=== PATIENT | male | born 1975 | race Two or more races ===

== ENCOUNTER 2017-09-02 13:39 | Emergency (ER) | payer SELFPAY ==
[2017-09-02] MEDS ORDERED: Sodium Chloride 0.9% 1,000 ML IV ONE (13:42)
[2017-09-02] MEDS ORDERED: Aspirin 81 MG Tab.Chew PO ONE (13:42)
--- NOTE | 2017-09-02 13:47 | EDM.PDOC ---
ED HPI GENERAL MEDICAL PROBLEM - General Stated Complaint: CHEST PAIN Time Seen by Provider: 09/02/17 13:45 Source of Information: Reports: Patient History Limitations: Reports: No Limitations - History of Present Illness INITIAL COMMENTS - FREE TEXT/NARRATIVE: HISTORY AND PHYSICAL: History of present illness: Patient is a 42-year-old male who presents to the emergency room today with complaints of midsternal chest pain that radiates to the left and into his back. He states he has had intermittent discomfort over the past 2-3 days. Today he was woken up at 7 AM in a "panic" with increased chest pain, shortness of breath, diaphoresis and nausea. He continued about his morning and presented to work. He states as he continues with working and exertion he has increased weakness and "just doesn't feel right". No previous history of any health conditions and does not take any [id number] or prescribed medications. Review of systems: As per history of present illness and below otherwise all systems reviewed and negative. Past medical history: As per history of present illness and as reviewed below otherwise noncontributory. Surgical history: As per history of present illness and as reviewed below otherwise noncontributory. Social history: No reported history of drug or alcohol abuse. Family history: As per history of present illness and as reviewed below otherwise noncontributory. Physical exam: General: Well-developed and well-nourished 42-year-old male. Alert and oriented. Nontoxic appearing and in no acute distress. HEENT: Atraumatic, normocephalic, pupils equal and reactive bilaterally, negative for conjunctival pallor or scleral icterus, mucous membranes moist, throat clear, neck supple, nontender, trachea midline. No drooling or trismus noted. No meningeal signs Lungs: Clear to auscultation, breath sounds equal bilaterally, chest nontender. Heart: S1S2, regular rate and rhythm without overt murmur Abdomen: Soft, nondistended, nontender. Negative for masses or hepatosplenomegaly. Negative for costovertebral tenderness. Pelvis: Stable nontender. Genitourinary: Deferred. Rectal: Deferred. Skin: Intact, warm, dry. No lesions or rashes noted. Extremities: Atraumatic, negative for cords or calf pain. Neurovascular unremarkable. Neuro: Awake, alert, oriented. Cranial nerves II through XII unremarkable. Cerebellum unremarkable. Motor and sensory unremarkable throughout. Exam nonfocal. Notes: Patient's blood pressure is elevated at 197/121. He states he has never had a history of hypertension. Denies any history of smoking tobacco in a routine marijuana user. Blood pressure has improved. Pain is still a 5/10. Reports that the pain is more "when I take in a deep breathe... I can feel it in my back". IV toradol ordered. After the Toradol his pain is at a 1 out of 10. We did discuss admission versus discharge to home. It sounds like his pain is more anxiety related. He states he usually uses marijuana to cope with his anxiety and has not had any in 3 days. He declines admission/transfer as we do not have any beds available at our facility (at capacity). Patient discharged with a prescription for diclofenac. Supportive care measures were reviewed and discussed. Signs and symptoms that would prompt him to return to the emergency room were also reviewed. He is agreeable to plan of care. Denies any further questions at this time Diagnostics: CBC, CMP, troponin, EKG, one view chest Therapeutics: Aspirin, nitroglycerin, saline Impression: Anxiety Non-specific chest pain Plan: 1. Please stop smoking. 2. Tylenol as needed for pain. Diclofenac has been prescribed as well. This medication is and anti-inflammatories to do not take it with any additional NSAID such as ibuprofen or Aleve. Please take with food. 3. Follow up with your [facility] care provider Monday. Return to the ED as needed and as discussed. Definitive disposition and diagnosis as appropriate pending reevaluation and review of above. Duration: Day(s): Location: Reports: Chest Chest Pain Score (Numeric/FACES): 7 - Related Data Allergies Allergy/AdvReac Type Severity Reaction Status Date / Time Penicillins Allergy Unknown Cannot Verified 09/02/17 13:43 Remember Home Meds: Home Meds . [No Known Home Meds] 09/02/17 [History] Past Medical History - Past Health History Medical/Surgical History: Denies Medical/Surgical History ED ROS GENERAL - Review of Systems Review Of Systems: ROS reveals no pertinent complaints other than HPI. ED EXAM, GENERAL - Physical Exam Exam: See Below (See dictation) Course - Vital Signs Last Recorded V/S: Last Vital Signs Temp 97.6 F 09/02/17 13:45 Pulse 98 09/02/17 13:45 Resp 20 09/02/17 13:45 BP 145/92 H 09/02/17 14:15 Pulse Ox 98 09/02/17 13:45 - Orders/Labs/Meds Orders: Active Orders 24 hr Category Date Time Status EKG Documentation Completion [RC] STAT Care 09/02/17 13:42 Active EKG Documentation Completion [RC] STAT Care 09/02/17 15:35 Active Chest 1V Frontal [CR] Stat Exams 09/02/17 13:42 Taken Labs: Laboratory Tests 09/02/17 09/02/17 Range/Units 13:50 13:50 WBC 8.66 (4.0-11.0) K/uL RBC 5.32 (4.50-5.90) M/uL Hgb 17.3 H (13.0-17.0) g/dL Hct 49.1 (38.0-50.0) % MCV 92.3 (80.0-98.0) fL MCH 32.5 H (27.0-32.0) pg MCHC 35.2 (31.0-37.0) g/dL RDW Std Deviation 44.0 (28.0-62.0) fl RDW Coeff of Rosalind 13 (11.0-15.0) % Plt Count 216 (150-400) K/uL MPV 9.60 (7.40-12.00) fL Neut % (Auto) 61.7 (48.0-80.0) % Lymph % (Auto) 28.5 (16.0-40.0) % Keith % (Auto) 7.9 (0.0-15.0) % Eos % (Auto) 1.4 (0.0-7.0) % Baso % (Auto) 0.5 (0.0-1.5) % Neut # (Auto) 5.4 (1.4-5.7) K/uL Lymph # (Auto) 2.5 H (0.6-2.4) K/uL Keith # (Auto) 0.7 (0.0-0.8) K/uL Eos # (Auto) 0.1 (0.0-0.7) K/uL Baso # (Auto) 0.0 (0.0-0.1) K/uL Nucleated RBC % 0.0 /100WBC Nucleated RBCs # 0 K/uL Sodium 139 (136-148) mmol/L Potassium 3.7 (3.5-5.1) mmol/L Chloride 102 (98-107) mmol/L Carbon Dioxide 25.8 (21.0-32.0) mmol/L BUN 13 (7.0-18.0) mg/dL Creatinine 1.1 (0.8-1.3) mg/dL Est Cr Clr Drug Dosing 84.64 mL/min Estimated GFR (MDRD) > 60.0 ml/min Glucose 116 H (74-106) mg/dL Calcium 9.0 (8.5-10.1) mg/dL Total Bilirubin 1.1 H (0.2-1.0) mg/dL AST 41 H (15-37) IU/L ALT 91 H (14-63) IU/L Alkaline Phosphatase 94 (46-116) U/L Troponin I < 0.050 (0.000-0.056) ng/mL Total Protein 7.9 (6.4-8.2) g/dL Albumin 4.4 (3.4-5.0) g/dL Globulin 3.5 (2.0-3.5) g/dL Albumin/Globulin Ratio 1.3 (1.3-2.8) Meds: Medications Discontinued Medications Generic Name Dose Route Start Last Admin Trade Name Freq PRN Reason Stop Dose Admin Aspirin 324 mg 09/02/17 13:42 09/02/17 14:07 Aspirin PO 09/02/17 13:43 324 mg ONETIME ONE Administration Sodium Chloride 1,000 mls @ 999 mls/hr 09/02/17 13:42 09/02/17 14:05 Normal Saline IV 09/02/17 14:42 999 mls/hr STAT ONE Administration Ketorolac Tromethamine 30 mg 09/02/17 14:33 09/02/17 15:21 Toradol IVPUSH 09/02/17 14:34 30 mg ONETIME ONE Administration Nitroglycerin 0.4 mg 09/02/17 13:42 09/02/17 14:15 Nitrostat SL 0.4 mg Q5M PRN Administration Chest Pain Departure - Departure Time of Disposition: 15:34 Disposition: Home, Self-Care 01 Clinical Impression: Anxiety, Nonspecific chest pain Instructions: Nonspecific Chest Pain, [id number] Referrals: PCP,Unknown [Primary Care Provider] - Additional Instructions: The following information is given to patients seen in the emergency department who are being discharged to home. This information is to outline your options for follow-up care. We provide all patients seen in our emergency department with a follow-up referral. The need for follow-up, as well as the timing and circumstances, are variable depending upon the specifics of your emergency department visit. If you don't have a primary care physician on staff, we will provide you with a referral. We always advise you to contact your personal physician following an emergency department visit to inform them of the circumstance of the visit and for follow-up with them and/or the need for any referrals to a consulting specialist. The emergency department will also refer you to a specialist when appropriate. This referral assures that you have the opportunity for follow-up care with a specialist. All of these measure are taken in an effort to provide you with optimal care, which includes your follow-up. Under all circumstances we always encourage you to contact your private physician who remains a resource for coordinating your care. When calling for follow-up care, please make the office aware that this follow-up is from your recent emergency room visit. If for any reason you are refused follow-up, please contact the [facility] Emergency Department at and asked to speak to the emergency department charge nurse. [facility] [address] [place] [id number] 1. Please stop smoking. 2. Tylenol as needed for pain. Diclofenac has been prescribed as well. This medication is and anti-inflammatories to do not take it with any additional NSAID such as ibuprofen or Aleve. Please take with food. 3. Follow up with your primary care provider Monday. Return to the ED as needed and as discussed. - My Orders Last 24 Hours: My Active Orders 09/02/17 13:42 EKG Documentation Completion [RC] STAT Chest 1V Frontal [CR] Stat 09/02/17 15:35 EKG Documentation Completion [RC] STAT - Assessment/Plan Last 24 Hours: My Active Orders 09/02/17 13:42 EKG Documentation Completion [RC] STAT Chest 1V Frontal [CR] Stat 09/02/17 15:35 EKG Documentation Completion [RC] STAT
[2017-09-02] MEDS: Nitroglycerin 0.4 MG Tab.SL SL PRN ×3 (14:05→14:15)
[2017-09-02 14:23] LABS: CHLORIDE,CL 102 mmol/L (98-107); SODIUM,NA 139 mmol/L (136-148)
[2017-09-02] MEDS ORDERED: Ketorolac 30 MG/ML SDV IVPUSH ONE (14:33)
--- NOTE | 2017-09-04 14:01 | CR ---
EXAM DATE: 09/02/17 PATIENT'S AGE: 42 Patient: LOIDA STRONG Facility: [place], [place] Site . Site : [id number] Study: XRay Chest [id number]/[id number] 2:34:59 PM Ordering Physician: Doctor Rosas Final Report: INDICATION: Chest pain. TECHNIQUE: Chest 2 views. COMPARISON: None FINDINGS: Cardiovascular and mediastinum: Allowing for portable AP technique, the cardiac silhouette is upper limits of normal in size. The mediastinal contour is normal. Pulmonary vasculature and sandi are normal. Lungs and pleural spaces: Lungs are clear. No pleural effusion. No pneumothorax. Bones and soft tissues: No acute findings. IMPRESSION: No acute pulmonary process. Dictated by Edwin Betts MD @ Sep 02 2017 3:11PM (Electronic Signature) Report Signed by Proxy. LIZA
== END 2017-09-02 15:55 | disposition home or self-care (01) ==
LOC: MW.ED 13:39
DX: R07.9 Chest pain, unspecified (principal); F41.9 Anxiety disorder, unspecified; Z88.0 Allergy status to penicillin
CPT/HCPCS: 36415; 71045; 80053; 84484; 85025; 93005; 96361; 96374; 99285; A9270; J1885; J7040; 99283

== ENCOUNTER 2021-01-20 19:21 | Emergency (ER) | payer MEDICAID ==
[2021-01-20] MEDS ORDERED: Sodium Chloride 0.9% 2.5 ML Syringe FLUSH PRN (19:24)
[2021-01-20] MEDS ORDERED: Sodium Chloride 0.9% 10 ML Syringe FLUSH PRN (19:24)
[2021-01-20] MEDS ORDERED: Lisinopril 10 MG Tab PO ONE ×2 (20:16→21:54)
[2021-01-20] MEDS ORDERED: Aspirin 81 MG Tab.Chew PO ONE (20:17)
--- NOTE | 2021-01-20 20:22 | PCM.EKG ---
#1 Interpretation EKG Date: 01/20/21 Time: 20:17 Rhythm: NSR Rate (Beats/Min): 74 ST-T: Normal
--- NOTE | 2021-01-20 21:01 | CR ---
INDICATION: Chest pain. TECHNIQUE: Chest 1 views. COMPARISON: September 02, 2017. FINDINGS: Cardiovascular and mediastinum: Heart size and vasculature are normal in caliber and appearance. Lungs and pleural spaces: Lungs are clear. No sign of infiltrate or mass. No sign of pleural effusion. No pneumothorax. Bones and soft tissues: No significant findings. IMPRESSION: No acute findings and no significant changes from the prior exam. Dictated by Lauro Little MD @ 01/20/2021 9:00:34 PM (Electronically Signed)
--- NOTE | 2021-01-20 21:01 | EDM.PDOC ---
ED HPI GENERAL MEDICAL PROBLEM - General Chief Complaint: Chest Pain Stated Complaint: CHEST PRESSURE, EYES BLURRY, EARS RINGING Time Seen by Provider: 01/20/21 19:29 Source of Information: Reports: Patient History Limitations: Reports: No Limitations - History of Present Illness INITIAL COMMENTS - FREE TEXT/NARRATIVE: HISTORY AND PHYSICAL: History of present illness: Patient is a 45-year-old male who presents to the emergency room with complaints of chest tightness, left-sided chest pain, intermittently blurred vision, tingling sensation across his forehead and ear fullness over the past week. Patient believes his symptoms are related to uncontrolled hypertension due to medication noncompliance. He states approximately 6 months ago he ran out of his lisinopril and did not have insurance to get this refilled. Patient denies any one-sided weakness, slurred speech, drooling or neurological deficits. Patient denies any fever, chills, headache, change in vision, syncope or near syncope. Denies any back pain, shortness of breath or cough. Denies any abdominal pain, nausea, vomiting, diarrhea, constipation or dysuria. Has not noted any blood in urine or stool. Patient has been eating and drinking appropriately. No recent travel or sick contacts. Review of systems: As per history of present illness and below otherwise all systems reviewed and negative. Past medical history: As per history of present illness and as reviewed below otherwise noncontributory. Surgical history: As per history of present illness and as reviewed below otherwise noncontributo ry. Social history: See social history for further information Family history: As per history of present illness and as reviewed below otherwise noncontributory. Physical exam: General: Well developed and well nourished 45-year-old male. Alert and orientated x 3. Nontoxic in appearance and in no acute distress. Vital signs are stable and have been reviewed by me. Nursing notes were reviewed. HEENT: Atraumatic, normocephalic, pupils equal and reactive bilaterally, negative for conjunctival pallor or scleral icterus, mucous membranes moist, TMs normal bilaterally, throat clear, neck supple, nontender, trachea midline. No drooling or trismus noted. No meningeal signs. No hot potato voice noted. Lungs: Clear to auscultation bilaterally. No wheezes, rales, or rhonchi. Chest nontender. Normal work of breathing, no accessory muscles used. Heart: S1S2, regular rate and rhythm without overt murmur, gallops, or rubs. No JVD. No peripheral edema Abdomen: Soft, nondistended, nontender. Normoactive bowel sounds. Negative for masses or costovertebral tenderness. Skin: Intact, warm, dry. No lesions or rashes noted. Hematologic: No petechiae or purpra. Mucosa appropriate color and normal nail bed color and refill. Extremities: Atraumatic, moves all extremities per self without difficulty or deficits, negative for cords or calf pain. +CMS bilaterally. Neurovascular unremarkable. Neuro: Awake, alert, oriented. Cranial nerves II through XII unremarkable. Cerebellum unremarkable. Motor and sensory unremarkable throughout. Symmetrical with even/equal strength throughout. Exam nonfocal. Psychiatric: Mood and affect are appropriate. Normal thought process. Answering questions appropriately. Please note that the patient was seen and evaluated during the 2019 SARS-CoV-2 novel coronavirus pandemic period. Community viral transmission is ongoing at time of this encounter and the emergency department is operating under pandemic response procedures. Medical Decision Making: Patient is a 45-year-old male who presents to the emergency room with complaints of chest pain/pressure, intermittent blurred vision and tingling across the forehead over the past 1 week. Patient has a history of hyper tension although has not been compliant with his medications x 6 months. Upon arrival the patient is hypertensive. Neurologically intact, no deficits or weakness noted. He is agreeable to a cardiac work-up, EKG, chest x-ray. Does request his lisinopril be refilled until he is able to get established with a PCP. Declines COVID testing today. Patient's lab work is unremarkable. EKG shows no acute or concerning findings. Chest x-ray shows no acute findings. Patient feels much improved after the lisinopril. Blood pressure is 140s over 80s. We discussed the importance of managing his blood pressure to avoid any complications. I have talked with the patient about today's findings, in addition to providing specific details for plan of care. Reassessment at the time of disposition demonstrates that the patient is in no acute distress. The patient is stable for discharge, counseling was provided and we discussed in great detail signs and symptoms that would prompt them to return to the Emergency Department. Medication, follow up and supportive care measures were reviewed and discussed. Voices understanding and is agreeable to plan of care. Denies any further questions or concerns at this time. Diagnostics: CBC, CMP, Troponin, EKG, CXR Therapeutics: ASA, Lisinopril Prescription: Lisinopril (#30) Impression: Medication noncompliance Medication refill Hypertension, unmanaged Chest pain, nonspecific Plan: 1. You were evaluated today on an emergent basis. Your cardiac enzymes, chest x-ray and EKG are unremarkable. Your symptoms are likely due to unmanaged and uncontrolled high blood pressure. It is important that you take your medication daily to prevent any further complication such as heart attack or stroke. I have prescribed you lisinopril 10 mg. It is important that you establish care with a primary care provider to have this refilled in the future. 2. You can alternate Tylenol and ibuprofen as needed for pain and fever management. 3. We encourage you to follow up with your primary care provider and/or recommended specialist in the next few days for re-evaluation and further care/management. 4. If your symptoms should worsen, new symptoms develop or any of the signs and symptoms we discussed should arise please return to the emergency room or call 911 (if needed). Definitive disposition and diagnosis as appropriate pending reevaluation and review of above. - Related Data Allergies Allergy/AdvReac Type Severity Reaction Status Date / Time Penicillins Allergy Unknown Cannot Verified 09/02/17 13:43 Remember Home Meds: Home Meds lisinopriL [Lisinopril] 10 mg PO DAILY 30 Days #30 tablet 01/20/21 [Rx] Past Medical History - Past Health History Medical/Surgical History: Denies Medical/Surgical History Cardiovascular History: Reports: Hypertension Endocrine/Metabolic History: Reports: Diabetes, Type II Social & Family History - Family History Family Medical History: No Pertinent Family History - Tobacco Use Tobacco Use Status *Q: Former Tobacco User Years of Tobacco use: 20 Packs/Tins Daily: 1 Used Tobacco, but Quit: Yes Month/Year Tobacco Last Used: 2000 Second Hand Smoke Exposure: No - Caffeine Use Caffeine Use: Reports: Soda - Alcohol Use Date of Last Drink: 01/16/21 - Recreational Drug Use Recreational Drug Use: Yes Recreational Drug Type: Reports: Marijuana/Hashish, Other (see below) Other Recreational Drug Type: marijuana gummies Recreational Drug Use Frequency: Not Used In Over 3 Months ED ROS GENERAL - Review of Systems Review Of Systems: Comprehensive ROS is negative, except as noted in HPI. ED EXAM, GENERAL - Physical Exam Exam: See Below (See dictation) Course - Vital Signs Last Recorded V/S: Last Vital Signs Temp 97.8 F 01/20/21 20:16 Pulse 80 01/20/21 20:16 Resp 18 01/20/21 20:16 BP 169/103 H 01/20/21 20:28 Pulse Ox 97 01/20/21 20:16 - Orders/Labs/Meds Orders: Active Orders 24 hr Category Date Time Status lisinopriL [Prinivil] Med 01/20/21 21:54 Once 10 mg PO ONETIME ONE Labs: Laboratory Tests 01/20/21 01/20/21 Range/Units 20:57 20:57 WBC 8.46 (4.0-11.0) K/uL RBC 4.86 (4.50-5.90) M/uL Hgb 15.1 (13.0-17.0) g/dL Hct 44.3 (38.0-50.0) % MCV 91.2 (80.0-98.0) fL MCH 31.1 (27.0-32.0) pg MCHC 34.1 (31.0-37.0) g/dL RDW Std Deviation 51.5 (28.0-62.0) fl RDW Coeff of Rosalind 15 (11.0-15.0) % Plt Count 220 (150-400) K/uL MPV 10.10 (7.40-12.00) fL Neut % (Auto) 54.3 (48.0-80.0) % Lymph % (Auto) 34.3 (16.0-40.0) % Avery % (Auto) 7.8 (0.0-15.0) % Eos % (Auto) 3.2 (0.0-7.0) % Baso % (Auto) 0.4 (0.0-1.5) % Neut # (Auto) 4.6 (1.4-5.7) K/uL Lymph # (Auto) 2.9 H (0.6-2.4) K/uL Avery # (Auto) 0.7 (0.0-0.8) K/uL Eos # (Auto) 0.3 (0.0-0.7) K/uL Baso # (Auto) 0.0 (0.0-0.1) K/uL Nucleated RBC % 0.0 /100WBC Nucleated RBCs # 0 K/uL Sodium 138 (136-148) mmol/L Potassium 3.7 (3.5-5.1) mmol/L Chloride 102 (98-107) mmol/L Carbon Dioxide 26.7 (21.0-32.0) mmol/L BUN 13 (7.0-18.0) mg/dL Creatinine 0.7 L (0.8-1.3) mg/dL Est Cr Clr Drug Dosing 120.26 mL/min Estimated GFR (MDRD) > 60.0 ml/min Glucose 100 (74-106) mg/dL Calcium 8.5 (8.5-10.1) mg/dL Total Bilirubin 0.9 (0.2-1.0) mg/dL AST 30 (15-37) IU/L ALT 46 (14-63) IU/L Alkaline Phosphatase 90 (46-116) U/L Troponin I < 0.050 (0.000-0.056) ng/mL Total Protein 7.9 (6.4-8.2) g/dL Albumin 4.1 (3.4-5.0) g/dL Globulin 3.8 (2.6-4.0) g/dL Albumin/Globulin Ratio 1.1 (0.9-1.6) Meds: Medications Discontinued Medications Generic Name Dose Route Start Last Admin Trade Name Freq PRN Reason Stop Dose Admin Aspirin 324 mg 01/20/21 20:17 01/20/21 20:29 Aspirin 81 Mg Tab.Chew PO 01/20/21 20:18 324 mg ONETIME ONE Administration Lisinopril 10 mg 01/20/21 20:16 01/20/21 20:28 Lisinopril 10 Mg Tab PO 01/20/21 20:17 10 mg ONETIME ONE Administration Sodium Chloride 10 ml 01/20/21 19:24 Sodium Chloride 0.9% 10 Ml Syringe FLUSH ASDIRECTED PRN Keep Vein Open Sodium Chloride 2.5 ml 01/20/21 19:24 Sodium Chloride 0.9% 2.5 Ml Syringe FLUSH ASDIRECTED PRN Keep Vein Open Departure - Departure Time of Disposition: 21:48 Disposition: Home, Self-Care 01 Clinical Impression: Uncontrolled hypertension, Nonspecific chest pain Prescriptions: lisinopriL [Lisinopril] 10 mg PO DAILY 30 Days #30 tablet Instructions: Nonspecific Chest Pain, Adult, [id number], Hypertension, Adult, [id number] Referrals: PCP,None [Primary Care Provider] - Forms: ED Department Discharge Additional Instructions: The following information is given to patients seen in the emergency department who are being discharged to home. This information is to outline your options for follow-up care. We provide all patients seen in our emergency department with a follow-up referral. The need for follow-up, as well as the timing and circumstances, are variable depending upon the specifics of your emergency department visit. If you don't have a primary care physician on staff, we will provide you with a referral. We always advise you to contact your personal physician following an emergency department visit to inform them of the circumstance of the visit and for follow-up with them and/or the need for any referrals to a consulting specialist. The emergency department will also refer you to a specialist when appropriate. This referral assures that you have the opportunity for follow-up care with a specialist. All of these measure are taken in an effort to provide you with optimal care, which includes your follow-up. Under all circumstances we always encourage you to contact your private physician who remains a resource for coordinating your care. When calling for follow-up care, please make the office aware that this follow-up is from your recent emergency room visit. If for any reason you are refused follow-up, please contact the [facility] Emergency Department at and asked to speak to the emergency department charge nurse. [facility] [address] [place] [id number] [address] Thank you for choosing the [facility] in [place] for your medical needs today. It was a pleasure caring for you. Today you were seen in the emergency department for chest pain and high blood pressure Your prescription was electronically sent to: [place] pharmacy 1. You were evaluated today on an emergent basis. Your cardiac enzymes, chest x-ray and EKG are unremarkable. Your symptoms are likely due to unmanaged and uncontrolled high blood pressure. It is important that you take your medication daily to prevent any further complication such as heart attack or stroke. I have prescribed you lisinopril 10 mg. It is important that you establish care with a primary care provider to have this refilled in the future. 2. You can alternate Tylenol and ibuprofen as needed for pain and fever management. 3. We encourage you to follow up with your primary care provider and/or recommended specialist in the next few days for re-evaluation and further care/management. 4. If your symptoms should worsen, new symptoms develop or any of the signs and symptoms we discussed should arise please return to the emergency room or call 911 (if needed). Sepsis Event Note (ED) - Evaluation Sepsis Screening Result: No Definite Risk - Focused Exam Vital Signs: Vital Signs Temp Pulse Resp BP BP Pulse Ox 01/20/21 20:28 169/103 H 01/20/21 20:16 97.8 F 80 18 172/112 H 97 - My Orders Last 24 Hours: My Active Orders 01/20/21 21:54 lisinopriL [Prinivil] 10 mg PO ONETIME ONE - Assessment/Plan Last 24 Hours: My Active Orders 01/20/21 21:54 lisinopriL [Prinivil] 10 mg PO ONETIME ONE
[2021-01-20 21:35] LABS: BLOOD UREA NITROGEN,BUN 13 mg/dL (7.0-18.0); CARBON DIOXIDE,CO2 26.7 mmol/L (21.0-32.0); CHLORIDE,CL 102 mmol/L (98-107); GLUCOSE RANDOM 100 mg/dL (74-106); POTASSIUM,K 3.7 mmol/L (3.5-5.1); SODIUM,NA 138 mmol/L (136-148)
== END 2021-01-20 22:03 | disposition home or self-care (01) ==
LOC: MW.ED 19:21
DX: R07.9 Chest pain, unspecified (principal); I10 Essential (primary) hypertension; Z76.0 Encounter for issue of repeat prescription; Z91.14 Patient's other noncompliance with medication regimen; Z88.0 Allergy status to penicillin
CPT/HCPCS: 36415; 71045; 80053; 84484; 85025; 99285; A9270

== ENCOUNTER 2021-01-31 12:44 | Emergency (ER) | payer MEDICAID ==
--- NOTE | 2021-01-31 13:09 | EDM.PDOC ---
ED HPI GENERAL MEDICAL PROBLEM - General Chief Complaint: Cardiovascular Problem Stated Complaint: Chest Pain Time Seen by Provider: 01/31/21 12:49 - History of Present Illness INITIAL COMMENTS - FREE TEXT/NARRATIVE: Patient is a 46-year-old male who presents today for left-sided chest pain. Patient states that he presents today after he was drinking almost every day and has had during 8 AM. He was involved in a DUI a few days ago was prompted him to stop drinking today because his family is becoming mad at him. He took some fentanyl pills yesterday is not sure the relation of chest pain started last night is been constant nonradiating not made better or worse with any events feels like achy feeling. He has not taken any medication for this and again he stopped drinking and notes has been also can tremulous and nervous as well. - Related Data Allergies Allergy/AdvReac Type Severity Reaction Status Date / Time Penicillins Allergy Unknown Cannot Verified 01/31/21 14:57 Remember Home Meds: Home Meds lisinopriL [Lisinopril] 10 mg PO DAILY 30 Days #30 tablet 01/20/21 [Rx] chlordiazePOXIDE [Librium] 25 mg PO TID 3 Days #18 cap 01/31/21 [Rx] Past Medical History - Past Health History Medical/Surgical History: Denies Medical/Surgical History Cardiovascular History: Reports: Hypertension Endocrine/Metabolic History: Reports: Diabetes, Type II Social & Family History - Family History Family Medical History: No Pertinent Family History - Caffeine Use Caffeine Use: Reports: Soda ED ROS GENERAL - Review of Systems Review Of Systems: See Below Constitutional: Reports: No Symptoms HEENT: Reports: No Symptoms Respiratory: Reports: No Symptoms Cardiovascular: Reports: Chest Pain Endocrine: Reports: No Symptoms GI/Abdominal: Reports: No Symptoms : Reports: No Symptoms Musculoskeletal: Reports: No Symptoms Skin: Reports: No Symptoms Neurological: Reports: No Symptoms Psychiatric: Reports: No Symptoms Hematologic/Lymphatic: Reports: No Symptoms Immunologic: Reports: No Symptoms ED EXAM, GENERAL - Physical Exam Exam: See Below Exam Limited By: No Limitations General Appearance: Alert, WD/WN, No Apparent Distress Eye Exam: Bilateral Eye: EOMI Head: Atraumatic Respiratory/Chest: No Respiratory Distress, Lungs Clear, Normal Breath Sounds Cardiovascular: Normal Peripheral Pulses, Regular Rate, Rhythm GI/Abdominal: Normal Bowel Sounds, Soft, Non-Tender Extremities: Normal Inspection, Normal Range of Motion Neurological: Alert, Oriented, Normal Cognition, Normal Gait #1 Interpretation EKG Date: 01/31/21 Time: 12:50 Rhythm: Other (sinus tach) Rate (Beats/Min): 110 ST-T: Normal Course - Vital Signs Last Recorded V/S: Last Vital Signs Temp 96.0 F L 01/31/21 12:52 Pulse 97 01/31/21 15:32 Resp 18 01/31/21 15:32 BP 159/80 H 01/31/21 15:32 Pulse Ox 95 01/31/21 15:32 - Orders/Labs/Meds Labs: Laboratory Tests 01/31/21 01/31/21 01/31/21 Range/Units 13:24 13:24 13:24 WBC 7.88 (4.0-11.0) K/uL RBC 5.08 (4.50-5.90) M/uL Hgb 16.0 (13.0-17.0) g/dL Hct 45.2 (38.0-50.0) % MCV 89.0 (80.0-98.0) fL MCH 31.5 (27.0-32.0) pg MCHC 35.4 (31.0-37.0) g/dL RDW Std Deviation 47.7 (28.0-62.0) fl RDW Coeff of Rosalind 15 (11.0-15.0) % Plt Count 238 (150-400) K/uL MPV 9.90 (7.40-12.00) fL Neut % (Auto) 68.7 (48.0-80.0) % Lymph % (Auto) 24.7 (16.0-40.0) % Carbon % (Auto) 6.1 (0.0-15.0) % Eos % (Auto) 0.0 (0.0-7.0) % Baso % (Auto) 0.5 (0.0-1.5) % Neut # (Auto) 5.4 (1.4-5.7) K/uL Lymph # (Auto) 2.0 (0.6-2.4) K/uL Carbon # (Auto) 0.5 (0.0-0.8) K/uL Eos # (Auto) 0.0 (0.0-0.7) K/uL Baso # (Auto) 0.0 (0.0-0.1) K/uL Nucleated RBC % 0.0 /100WBC Nucleated RBCs # 0 K/uL INR 1.02 APTT 27.5 (18.6-31.3) SEC Sodium 132 L (136-148) mmol/L Potassium 4.2 (3.5-5.1) mmol/L Chloride 91 L (98-107) mmol/L Carbon Dioxide 25.2 (21.0-32.0) mmol/L BUN 7 (7.0-18.0) mg/dL Creatinine 0.9 (0.8-1.3) mg/dL Est Cr Clr Drug Dosing TNP Estimated GFR (MDRD) > 60.0 ml/min Glucose 139 H (74-106) mg/dL Calcium 8.8 (8.5-10.1) mg/dL Phosphorus 3.5 (2.6-4.7) mg/dL Magnesium 1.6 L (1.8-2.4) mg/dL Total Bilirubin 1.7 H (0.2-1.0) mg/dL AST 180 H (15-37) IU/L ALT 181 H (14-63) IU/L Alkaline Phosphatase 122 H (46-116) U/L Creatine Kinase 1401 H (26-308) U/L Troponin I < 0.050 (0.000-0.056) ng/mL Total Protein 9.1 H (6.4-8.2) g/dL Albumin 4.8 (3.4-5.0) g/dL Globulin 4.3 H (2.6-4.0) g/dL Albumin/Globulin Ratio 1.1 (0.9-1.6) Lipase 96 (73-393) U/L Urine Opiates Screen (NEGATIVE) Ur Oxycodone Screen (NEGATIVE) Urine Methadone Screen (NEGATIVE) Ur Barbiturates Screen (NEGATIVE) Ur Phencyclidine Scrn (NEGATIVE) Ur Amphetamine Screen (NEGATIVE) U Methamphetamines Scrn (NEGATIVE) U Benzodiazepines Scrn (NEGATIVE) U Cocaine Metab Screen (NEGATIVE) U Marijuana (THC) Screen (NEGATIVE) Ethyl Alcohol 44 mg/dL 01/31/21 01/31/21 Range/Units 14:55 16:43 WBC (4.0-11.0) K/uL RBC (4.50-5.90) M/uL Hgb (13.0-17.0) g/dL Hct (38.0-50.0) % MCV (80.0-98.0) fL MCH (27.0-32.0) pg MCHC (31.0-37.0) g/dL RDW Std Deviation (28.0-62.0) fl RDW Coeff of Rosalind (11.0-15.0) % Plt Count (150-400) K/uL MPV (7.40-12.00) fL Neut % (Auto) (48.0-80.0) % Lymph % (Auto) (16.0-40.0) % Carbon % (Auto) (0.0-15.0) % Eos % (Auto) (0.0-7.0) % Baso % (Auto) (0.0-1.5) % Neut # (Auto) (1.4-5.7) K/uL Lymph # (Auto) (0.6-2.4) K/uL Carbon # (Auto) (0.0-0.8) K/uL Eos # (Auto) (0.0-0.7) K/uL Baso # (Auto) (0.0-0.1) K/uL Nucleated RBC % /100WBC Nucleated RBCs # K/uL INR APTT (18.6-31.3) SEC Sodium (136-148) mmol/L Potassium (3.5-5.1) mmol/L Chloride (98-107) mmol/L Carbon Dioxide (21.0-32.0) mmol/L BUN (7.0-18.0) mg/dL Creatinine (0.8-1.3) mg/dL Est Cr Clr Drug Dosing Estimated GFR (MDRD) ml/min Glucose (74-106) mg/dL Calcium (8.5-10.1) mg/dL Phosphorus (2.6-4.7) mg/dL Magnesium (1.8-2.4) mg/dL Total Bilirubin (0.2-1.0) mg/dL AST (15-37) IU/L ALT (14-63) IU/L Alkaline Phosphatase (46-116) U/L Creatine Kinase 1345 H (26-308) U/L Troponin I < 0.050 (0.000-0.056) ng/mL Total Protein (6.4-8.2) g/dL Albumin (3.4-5.0) g/dL Globulin (2.6-4.0) g/dL Albumin/Globulin Ratio (0.9-1.6) Lipase (73-393) U/L Urine Opiates Screen NEGATIVE (NEGATIVE) Ur Oxycodone Screen NEGATIVE (NEGATIVE) Urine Methadone Screen NEGATIVE (NEGATIVE) Ur Barbiturates Screen NEGATIVE (NEGATIVE) Ur Phencyclidine Scrn NEGATIVE (NEGATIVE) Ur Amphetamine Screen NEGATIVE (NEGATIVE) U Methamphetamines Scrn NEGATIVE (NEGATIVE) U Benzodiazepines Scrn NEGATIVE (NEGATIVE) U Cocaine Metab Screen NEGATIVE (NEGATIVE) U Marijuana (THC) Screen POSITIVE (NEGATIVE) Ethyl Alcohol mg/dL Meds: Medications Discontinued Medications Generic Name Dose Route Start Last Admin Trade Name Freq PRN Reason Stop Dose Admin Chlordiazepoxide HCl 50 mg 01/31/21 13:28 01/31/21 14:13 Chlordiazepoxide 25 Mg Cap PO 01/31/21 13:29 50 mg ONETIME ONE Administration Sodium Chloride 1,000 mls @ 1,000 mls/hr 01/31/21 14:35 01/31/21 15:07 Normal Saline IV 01/31/21 15:34 1,000 mls/hr .Bolus ONE Administration Sodium Chloride 1,000 mls @ 1,000 mls/hr 01/31/21 16:27 01/31/21 16:30 Normal Saline IV 01/31/21 17:26 1,000 mls/hr .Bolus ONE Administration Iopamidol 100 ml 01/31/21 15:28 01/31/21 15:28 Iopamidol 755 Mg/Ml 500 Ml Multipack Bottle IVPUSH 01/31/21 15:29 100 ml ONETIME ONE Administration Lorazepam 2 mg 01/31/21 13:28 01/31/21 14:13 Lorazepam 2 Mg/Ml Sdv IVPUSH 01/31/21 13:29 2 mg ONETIME ONE Administration Lorazepam 2 mg 01/31/21 16:32 Lorazepam 2 Mg/Ml Sdv IVPUSH 01/31/21 16:33 ONETIME ONE - Re-Assessments/Exams Free Text/Narrative Re-Assessment/Exam: 01/31/21 17:42 Patient remained stable we would admit the patient for observation for possible alcohol withdrawal however patient has some obligations either take care of at home and cannot stay we will send patient home with a Librium taper as he is stuck that he will stop drinking patient explained importance of not drinking and also taking Librium. Departure - Departure Time of Disposition: 17:43 Disposition: Home, Self-Care 01 Condition: Good Clinical Impression: Alcohol withdrawal - Discharge Information *PRESCRIPTION DRUG MONITORING PROGRAM REVIEWED*: Not Applicable *COPY OF PRESCRIPTION DRUG MONITORING REPORT IN PATIENT TERRENCE: Not Applicable Prescriptions: chlordiazePOXIDE [Librium] 25 mg PO TID 3 Days #18 cap Instructions: Alcohol Withdrawal Syndrome, [id number] Forms: ED Department Discharge Additional Instructions: You were seen today for feeling shaky. Your symptoms are likely related to alcohol withdrawal. We would have like to admit you to the hospital however you have applications you have to deal with at home and cannot be admitted. We will send you home on medication this is a Librium taper we would like for you to take the medicine at 50 mg the first 2 days 3 times a day and then decrease it to 25 mg for the next 2 days. If you have any other concerning signs or symptoms please free to return to the ED otherwise to follow-up with your primary care physician. The following information is given to patients seen in the emergency department who are being discharged to home. This information is to outline your options for follow-up care. We provide all patients seen in our emergency department with a follow-up referral. The need for follow-up, as well as the timing and circumstances, are variable depending upon the specifics of your emergency department visit. If you don't have a primary care physician on staff, we will provide you with a referral. We always advise you to contact your personal physician following an emergency department visit to inform them of the circumstance of the visit and for follow-up with them and/or the need for any referrals to a consulting specialist. The emergency department will also refer you to a specialist when appropriate. This referral assures that you have the opportunity for follow-up care with a specialist. All of these measure are taken in an effort to provide you with optimal care, which includes your follow-up. Under all circumstances we always encourage you to contact your private physician who remains a resource for coordinating your care. When calling for follow-up care, please make the office aware that this follow-up is from your recent emergency room visit. If for any reason you are refused follow-up, please contact the [facility] Emergency Department at and asked to speak to the emergency department charge nurse. Please follow up with your primary care physician. If you do not have a primary care physician, see below: [facility] [address] [place] [id number] [facility] [address] [place] [address] Sepsis Event Note (ED) - Focused Exam Vital Signs: Vital Signs Temp Pulse Resp BP Pulse Ox 01/31/21 15:32 97 18 159/80 H 95 01/31/21 12:52 96.0 F L 113 H 22 H 182/96 H 96 - Assessment/Plan Plan: Patient is a 46-year-old male who presents today for left-sided chest pain. Patient also has some tremors on exam states that he stopped drinking last night around 8 PM. Patient also took some fentanyl pills which could have been laced with something. Patient could be having chest pain related to the pills being laced with cocaine. Patient heart score is 3 due to age and risk factors will obtain EKG labs reassess.
[2021-01-31] MEDS ORDERED: LORazepam 2 MG/ML SDV IVPUSH ONE ×2 (13:28→16:32)
[2021-01-31] MEDS ORDERED: chlordiazePOXIDE 25 MG Cap PO ONE (13:28)
[2021-01-31 14:13] LABS: BLOOD UREA NITROGEN,BUN 7 mg/dL (7.0-18.0); CARBON DIOXIDE,CO2 25.2 mmol/L (21.0-32.0); CHLORIDE,CL 91 mmol/L (98-107); GLUCOSE RANDOM 139 mg/dL (74-106); LIPASE 96 U/L (73-393); POTASSIUM,K 4.2 mmol/L (3.5-5.1); SODIUM,NA 132 mmol/L (136-148)
--- NOTE | 2021-01-31 14:24 | CR ---
Indication: Chest pain. Technique: PA and lateral views of the chest. Comparison: January 20, 2021. Findings: The heart is normal in size. The lungs are clear. No infiltrate, pleural effusion, or pneumothorax is identified. Impression: No acute cardiopulmonary process. Dictated by Tiff Nicholson MD @ 01/31/2021 2:23:02 PM (Electronically Signed)
[2021-01-31] MEDS ORDERED: Sodium Chloride 0.9% 1,000 ML IV ONE ×2 (14:35→16:27)
[2021-01-31] MEDS ORDERED: Iopamidol 755 MG/ML 500 ML Multipack Bottle IVPUSH ONE (15:28)
--- NOTE | 2021-01-31 15:56 | CT ---
INDICATION: Elevated LFTs. TECHNIQUE: CT of the abdomen and pelvis with 100 cc Isovue 370 IV contrast. Coronal and sagittal reconstructions. COMPARISON: None. FINDINGS: The liver is enlarged measuring 19.1 cm in length. Moderate diffuse hepatic steatosis. The gallbladder, spleen, pancreas, and adrenal glands are negative. No biliary dilation. Hepatic and portal veins are patent. Symmetric enhancement of the kidneys. No hydronephrosis or ureteral dilation. No obstructing urinary calculi. Bladder wall thickening may be due to underdistention. The prostate gland is normal in appearance. No bowel dilation. Negative appendix. No intraperitoneal free air or fluid. Tiny fat containing umbilical hernia. No lymphadenopathy. Sclerosis in the left pubic bone is likely degenerative in nature. Mild linear atelectasis or scarring in the left lung base. The lung bases are otherwise clear. IMPRESSION: 1. No acute findings in the abdomen or pelvis. 2. Hepatomegaly with moderate diffuse hepatic steatosis. Please note that all CT scans at this facility use dose modulation, iterative reconstruction, and/or weight-based dosing when appropriate to reduce radiation dose to as low as reasonably achievable. Dictated by Brandie Mcgee MD @ 01/31/2021 3:55:15 PM (Electronically Signed)
== END 2021-01-31 18:01 | disposition home or self-care (01) ==
LOC: MW.ED 12:44
DX: F10.230 Alcohol dependence with withdrawal, uncomplicated (principal); E11.9 Type 2 diabetes mellitus without complications; I10 Essential (primary) hypertension; Z88.0 Allergy status to penicillin; Z79.899 Other long term (current) drug therapy; Y90.2 Blood alcohol level of 40-59 mg/100 ml
CPT/HCPCS: 36415; 71046; 74177; 80053; 80305; 80307; 82550; 83690; 83735; 84100; 84484; 85025; 85610; 85730; 93005; 96374; 96376; 99285; A9270; J2060; J7030; Q9967

== ENCOUNTER 2021-06-29 04:38 | Emergency (ER) | payer SELFPAY ==
[2021-06-29] MEDS ORDERED: Lidocaine 2% Viscous Solution 15 ML UD PO STA (05:07)
[2021-06-29] MEDS ORDERED: LORazepam 2 MG/ML SDV IVPUSH ONE (05:16)
[2021-06-29 05:25] LABS: CARBON DIOXIDE,CO2 23.5 mmol/L (21.0-32.0)
[2021-06-29] MEDS ORDERED: Ibuprofen 600 MG Tab PO ONE (05:40)
[2021-06-29] MEDS ORDERED: cloNIDine 0.1 MG Tab PO ONE (06:07)
[2021-06-29] MEDS ORDERED: Acetaminophen/HYDROcodone 325-5 MG Tab PO ONE (06:56)
== END 2021-06-29 08:45 | disposition home or self-care (01) ==
LOC: MW.ED 04:38
DX: K02.9 Dental caries, unspecified (principal); R07.9 Chest pain, unspecified; I10 Essential (primary) hypertension; E11.9 Type 2 diabetes mellitus without complications; Z88.0 Allergy status to penicillin; Z79.84 Long term (current) use of oral hypoglycemic drugs
CPT/HCPCS: 36415; 71045; 80053; 80305; 83690; 84484; 85025; 85379; 93005; 96374; 99285; A9270; J2060; 93010; 99284

== ENCOUNTER 2021-08-26 11:09 | Emergency (ER) | payer SELFPAY ==
[2021-08-26] MEDS ORDERED: Lisinopril 10 MG Tab PO ONE (11:32)
[2021-08-26 12:29] LABS: BLOOD UREA NITROGEN,BUN 9 mg/dL (7.0-18.0); CARBON DIOXIDE,CO2 23.9 mmol/L (21.0-32.0); CHLORIDE,CL 103 mmol/L (98-107); GLUCOSE RANDOM 120 mg/dL (74-106); POTASSIUM,K 3.8 mmol/L (3.5-5.1); SODIUM,NA 137 mmol/L (136-148)
[2021-08-26 12:31] LABS: ESTIMATED GFR > 60.0 ml/min
== END 2021-08-26 12:56 ==
LOC: MW.ED 11:09
DX: I10 Essential (primary) hypertension (principal); R74.01 Elevation of levels of liver transaminase levels; E11.9 Type 2 diabetes mellitus without complications; Z88.0 Allergy status to penicillin; Z79.899 Other long term (current) drug therapy; Z79.84 Long term (current) use of oral hypoglycemic drugs
CPT/HCPCS: 36415; 71045; 80053; 84484; 85025; 93005; 99284; A9270; 93010; 99283